=== PATIENT | female | born 1980 | race Caucasian/White ===

== ENCOUNTER 2017-07-05 17:35 | Emergency (ER) | payer SELFPAY ==
--- NOTE | 2017-07-05 20:09 | RAD ---
INDICATION: Neck pain. Injury. COMPARISON: Cervical spine January 29, 2015 TECHNIQUE: Noncontrast axial source images was performed from the skull base to the thoracic inlet. Coronal and and sagittal reformatted images were generated. FINDINGS: Vertebrae: There is no fracture or acute focal bony lesion. There is prior surgical fusion at C6-C7. There is partial fusion at C6-C7 which may be developmental. There is minor multilevel uncinate process spurring Alignment: The craniocervical junction appears normal. The cervical vertebrae are normally aligned. Central Canal: There are no significant CT abnormalities of the central canal or foramina. MR imaging is a more sensitive method to evaluate the canal and foramina. Intervertebral disc spaces: The remaining disc spaces are maintained. Brain: The visualized brain appears unremarkable. Soft tissues: The visualized soft tissue elements of the neck are unremarkable. The prevertebral soft tissues appear normal. The lung apices are clear. IMPRESSION: POSTSURGICAL CHANGES C6-C7. NO ACUTE RADIOLOGIC FINDINGS.
[2017-07-05] MEDS ORDERED: Cyclobenzaprine TAB* 10 MG PO ONE (20:50)
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
[2017-07-05 21:10] VITALS: BP 102/58
== END 2017-07-05 21:05 | disposition home or self-care (01) ==
LOC: ED 17:35
DX: S16.1XXA Strain of muscle, fascia and tendon at neck level, initial encounter (principal); V43.52XA Car driver injured in collision with other type car in traffic accident, initial encounter; Y93.89 Activity, other specified; Y92.410 Unspecified street and highway as the place of occurrence of the external cause
CPT/HCPCS: 72125; 99282; A9270-GY

== ENCOUNTER 2019-07-08 14:39 | Emergency (ER) | payer BC ==
--- NOTE | 2019-07-08 16:05 | ED ---
Bite Injury/Animal - HPI Summary HPI Summary: 39 yo female presents with right index finger cat bite. 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 Was giving the cat a bath last night and cat bit her right index finger. 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 She plans on keeping the cat. She is here because today the bite area is more red and swollen. She denies fever, chills. Unsure date of last tetanus. She also mentions that she is on cefuroxime currently due to lyme disease and inability to tolerate doxycycline. Has an appt with her PCP in 2 days. She has not contacted the health department. - History of Current Complaint Chief Complaint: EDAnimalBite Stated Complaint: INJURY TO RIGHT HAND FROM ANIMAL BITE PER PT Time Seen by Provider: 07/08/19 16:05 Hx Obtained From: Patient Severity Initially: Moderate Severity Currently: Mild Pain Intensity: 3 Pain Scale Used: 0-10 Numeric - Allergies/Home Medications Allergies/Adverse Reactions: Allergies Allergy/AdvReac Type Severity Reaction Status Date / Time latex Allergy Rash Verified 07/08/19 15:03 PMH/Surg Hx/FS Hx/Imm Hx Endocrine/Hematology History: Denies: Hx Diabetes Cardiovascular History: Denies: Hx Hypertension, Hx Pacemaker/ICD Respiratory History: Denies: Hx Asthma, Hx Chronic Obstructive Pulmonary Disease (COPD) History: Denies: Hx Renal Disease Musculoskeletal History: Reports: Hx Arthritis, Hx Back Problems, Other Musculoskeletal History Sensory History: Denies: Hx Hearing Aid Psychiatric History: Denies: Hx Panic Disorder - Surgical History Surgery Procedure, Year, and Place: rhinosplasty, cervical fusion, lumbar fusion - Immunization History Immunizations Up to Date: No Infectious Disease History: No Infectious Disease History: Denies: Traveled Outside the [place] in Last 30 Days - Family History Known Family History: Positive: Non-Contributory - Social History Occupation: Employed Full-time Lives: With Family Alcohol Use: Weekly Hx Substance Use: No Substance Use Type: Reports: None Hx Tobacco Use: No Smoking Status (MU): Never Smoked Tobacco Review of Systems Constitutional: Negative Cardiovascular: Negative Respiratory: Negative Gastrointestinal: Negative Skin: Other - Right index finger cat bite Neurological: Negative Psychological: Normal All Other Systems Reviewed And Are Negative: No Physical Exam - Summary Physical Exam Summary: GENERAL: NAD. WDWN. No pain distress. SKIN: RIGHT INDEX FINGER: 2mm puncture wound to dorsoradial aspect of intermediate phalanx with mild surrounding erythema and edema. No warmth or active drainage. No streaking. NECK: Supple. Nontender. No lymphadenopathy. CHEST: No accessory muscle use. Breathing comfortably and in no distress. CV: Pulses intact. Cap refill <2seconds MSK: Right index finger: slight decreased ROM at PIP due to edema. FROM MCP and DIP NEURO: Alert. PSYCH: Age appropriate behavior. Triage Information Reviewed: Yes Vital Signs On Initial Exam: Initial Vitals Temp Pulse Resp BP Pulse Ox 97.8 F 72 14 110/68 100 07/08/19 14:58 07/08/19 14:58 07/08/19 14:58 07/08/19 14:58 07/08/19 14:58 Vital Signs Reviewed: Yes Procedures - Sedation Patient Received Moderate/Deep Sedation with Procedure: No Diagnostics - Vital Signs Vital Signs Temp Pulse Resp BP Pulse Ox 07/08/19 14:58 97.8 F 72 14 110/68 100 - Laboratory Lab Statement: Any lab studies that have been ordered have been reviewed, and results considered in the medical decision making process. Bite Injury Course/Dx - Course Course Of Treatment: tdap updated today. Will have her stop the cefuroxime and place her on augmentin for cat bite. I spoke with the [facility] department and they recommend pt monitor the new cat for signs of rabies and alert them if she notices these - no rabies booster at this time. Pt voices understanding and is agreeable with the plan - Diagnoses Provider Diagnosis: Cat bite of finger Discharge ED - Sign-Out/Discharge Documenting (check all that apply): Patient Departure - Discharge Plan Condition: Stable Disposition: HOME Prescriptions: Amoxicillin/Clavulanate TAB* [Augmentin TAB 875*] 875 mg PO BID #14 tab Patient Education Materials: Animal Bite (ED) Referrals: Citlaly Miranda MD [Primary Care Provider] - Additional Instructions: If you develop a fever, shortness of breath, chest pain, new or worsening symptoms - please call your PCP or go to the ED immediately. Please stop taking your cefuroxime and start taking the AUGMENTIN as prescribed. Continue to change the band-aid daily until well healed Please keep your appointment with your primary doctor on Wednesday regarding your lyme treatment - Billing Disposition and Condition Condition: STABLE Disposition: Home
[2019-07-08] MEDS ORDERED: Tetan/Diph/Pertus SYR(Tdap)* 0.5 ML SYR(BOOSTRIX) use SYR contains LATEX IM ONE (16:24)
[2019-07-08] MEDS ORDERED: TETANUS TOXOID IM ONE (17:00)
[2019-07-08] MEDS ORDERED: ACELLULAR PERTUSSIS VACCINE IM ONE (17:00)
[2019-07-08] MEDS ORDERED: DIPHTHERIA TOXOID IM ONE (17:00)
[2019-07-08 21:06] VITALS: BP 114/65
== END 2019-07-08 17:02 | disposition home or self-care (01) ==
LOC: ED 14:39
DX: S61.250A Open bite of right index finger without damage to nail, initial encounter (principal); Z23 Encounter for immunization; W55.01XA Bitten by cat, initial encounter; Y92.009 Unspecified place in unspecified non-institutional (private) residence as the place of occurrence of the external cause; Z91.040 Latex allergy status
CPT/HCPCS: 90471; 90715; 99282